=== PATIENT | male | born 1995 | race Caucasian/White ===

== ENCOUNTER 2017-06-11 11:46 | Day surgery (SDC) | payer OTHER ==
[2017-06-11] VITALS (8 sets, daily range): BP systolic 113–126; BP diastolic 46–81; PULSE 87–117; TEMP 98–101.1
[~2017-06-11] VITALS: Ht 190.5 cm; Wt 90.9 kg
[~2017-06-11 11:46] MED LIST: PERCOCET 325 MG1 TA2 PO; ULTRAM 50MG TAB50 MG PO
[2017-06-11 12:29] LABS: BASO % 0.2 % (0.0-2.0); EOS % 0.1 % (0-4.0); GRAN # 16.3 (1.4-6.5); GRAN % 89.2 % (42.2-75.2); HEMOGLOBIN 15.6 g/dl (12.5-16.1); LYMPH # 0.8 (1.2-3.4); LYMPH % 4.2 % (20.0-51.0); MEAN CELL VOLUME 85 fl (80.0-95.0); MEAN CORPUSCULAR HEMOGLOBIN 30 pg (26.0-32.0); MEAN CORPUSCULAR HGB CONC 36 g/dl (33.0-37.0); MEAN PLATELET VOLUME 9.3 fl (7.4-10.4); MONO % 5.5 % (1.7-9.3); PLATELET COUNT 187 K/mm3 (130-400); RED BLOOD COUNT 5.18 M/mm3 (4.20-5.60); WHITE BLOOD COUNT 18.3 K/mm3 (4.8-10.8)
[2017-06-11 12:40] LABS: ALBUMIN 5.2 gm/dL (3.5-5.0); BILIRUBIN,TOTAL 0.8 mg/dL (0.0-1.0); C-REACTIVE PROTEIN 0.8 mg/dL (0.0-0.9); CREATININE, serum 0.96 mg/dL (0.66-1.25); POTASSIUM 3.5 mmol/L (3.4-5.0)
[2017-06-11 13:15] LABS: COLLECTION METHOD CLEAN CATCH
[2017-06-11 13:23] LABS: MUCOUS Present /lpf; PH 8 (5-8); SQUAMOUS EPITHELIAL None Seen /hpf; URINE APPEARANCE Clear; URINE BACTERIA None Seen /hpf; URINE BILIRUBIN Negative (NEGATIVE); URINE BLOOD Negative (NEGATIVE); URINE COLOR Yellow; URINE GLUCOSE Negative (NEGATIVE); URINE KETONE Negative (NEGATIVE); URINE LEUKOCYTE ESTERASE Negative (NEGATIVE); URINE PROTEIN(semi-quant) Negative (NEGATIVE); URINE UROBILINOGEN Negative (NEGATIVE); URINE WBC 0-2 /hpf
[2017-06-11] MEDS ORDERED: PERCOCET 325 MG1 TA2 PO (15:40)
[2017-06-11] MEDS ORDERED: COLACE 100100 MG/CAP PO (15:40)
[2017-06-11] MEDS ORDERED: MOTRIN 600600 MG/TAB PO (15:41)
[2017-06-12 02:08] VITALS: BP 119/49; PULSE 78; TEMP 98.7
[2017-06-12 05:33] VITALS: BP 123/52; PULSE 90; TEMP 98.2
[2017-06-12 09:31] VITALS: BP 118/53; PULSE 65; TEMP 97.9
== END 2017-06-12 10:55 | disposition home or self-care (01) ==
LOC: COL.ER 11:46 → SURG 14:25 → COL.ER 14:25 → SDCO 15:32 → SURG 06-12 10:55 → SDCO 06-12 10:55
PROVIDERS: Nurse Practitioner
DX: K35.80 Unspecified acute appendicitis (principal); F17.210 Nicotine dependence, cigarettes, uncomplicated
CPT/HCPCS: J0694; J1100; J1170; J1885; J2250; J2270; J2405; J2704; J2710; J3010; J7030; J7050; Q9967